=== PATIENT | male | born 1985 | race American Indian/Alaskan Native ===

== ENCOUNTER 2017-01-03 07:06 | Emergency (ER) | payer MEDICAID ==
[2017-01-03 07:21] VITALS: RESP 18; TEMP 98; O2SAT 99
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
[2017-01-03 08:10] LABS: BASO # 0.03 K/mm3 (0.0-2.0); BASO % 0.7 % (0.0-3.0); EOS # 0.1 (0.0-0.7); EOS % 2.6 % (1.5-5.0); GRAN # 2.66 (1.4-6.5); GRAN % 57.7 % (50.0-68.0); HEMATOCRIT 35.4 % (42.0-52.0); LYMPH # 1.4 (1.2-3.4); LYMPH % 30.8 % (22.0-35.0); MEAN CELL VOLUME 91.7 fl (80.0-105.0); MEAN CORPUSCULAR HGB CONC 31.6 g/dl (31.0-37.0); MEAN PLATELET VOLUME 8.7 fl (7.0-11.0); MONO # 0.4 (0.1-0.6); MONO % 8.2 % (1.0-6.0); RED CELL DISTRIBUTION WIDTH 14.7 % (11.5-14.5); WHITE BLOOD COUNT 4.6 10^3/ul (4.5-11.0)
[2017-01-03] MEDS ORDERED: Lidocaine 1% Inj (20ml) IJ STA (08:12)
[2017-01-03 08:23] LABS: ALB/GLOB RATIO 1.5 (1.1-1.8); ALKALINE PHOSPHATASE 47 U/L (38-126); ALT/SGPT 32 U/L (7-56); AST/SGOT 44 U/L (17-59); BILIRUBIN,TOTAL 0.5 mg/dL (0.2-1.3); BLOOD UREA NITROGEN 11 mg/dL (7-21); CALCIUM 8.7 mg/dL (8.4-10.5); CARBON DIOXIDE 26 mmol/L (21-33); CHLORIDE 106 mmol/L (95-110); GFR AFRICAN-AMERICAN > 60; GLUCOSE,RANDOM 104 mg/dL (70-110); SODIUM 140 mmol/L (132-148); TOTAL PROTEIN 5.9 g/dL (5.8-8.3)
[2017-01-03 08:24] LABS: POTASSIUM 4.1 mmol/L (3.6-5.0)
[2017-01-03] MEDS ORDERED: Tmp-Smz 800 mg-160 mg DS Tab PO STA (08:45)
[2017-01-03 11:54] VITALS: BP 143/64; PULSE 86
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
== END 2017-01-03 09:25 | disposition home or self-care (01) ==
LOC: ED 07:06
DX: M79.5 Residual foreign body in soft tissue (principal)

== ENCOUNTER 2017-01-08 20:18 | Emergency (ER) | payer MEDICAID ==
[2017-01-08 21:04] VITALS: BP 122/72; PULSE 88; RESP 16; TEMP 98.7; O2SAT 99
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
== END 2017-01-08 22:41 | disposition home or self-care (01) ==
LOC: ED 20:18
DX: Z51.89 Encounter for other specified aftercare (principal)

== ENCOUNTER 2017-06-07 01:23 | Emergency (ER) | payer MEDICAID ==
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
[2017-06-07 02:11] VITALS: RESP 17
[2017-06-07 02:44] VITALS: BP 115/71; PULSE 79; TEMP 98.1; O2SAT 100
== END 2017-06-07 02:42 | disposition home or self-care (01) ==
LOC: ED 01:23
DX: Z76.0 Encounter for issue of repeat prescription (principal)